=== PATIENT | male | born 1995 ===

== ENCOUNTER 2018-03-23 16:53 | Emergency (ER) | payer OTHER ==
[2018-03-23 17:03] VITALS: BP 150/89; PULSE 98; RESP 16; TEMP 98.4; O2SAT 98
[2018-03-23] MEDS ORDERED: IBUPROFEN 800 MG TAB PO ONE (17:15)
--- NOTE | 2018-03-23 17:18 | PD ---
HPI Chief Complaint: Injury Time Seen by Provider: 17:10 Travel History International Travel<30 days: No Contact w/Intl Traveler<30days: No Traveled to known affect area: No History of Present Illness HPI 22-year-old male presents to the emergency department for evaluation of bilateral arm pain injury that occurred around 330 this afternoon. Patient states he dropped a heavy toolbox on his arms. He states the right is worse than the left. He denies any other injury. He is not currently on any medications. He states he is allergic to penicillin. Current pain is 8/10, achy, throbbing, sharp. Exacerbating factor is movement. Alleviating factors keeping the arm still. Moderate severity. PFSH Social History Alcohol Use: Yes Tobacco Use: No Substance Use: No Allergies-Medications (Allergen,Severity, Reaction): Coded Allergies: Penicillins (Verified Allergy, Unknown, 03/23/18) Review of Systems Except as stated in HPI: all other systems reviewed are Neg Physical Exam Narrative GENERAL: Well-nourished, well-developed male patient. Afebrile. SKIN: Focused skin assessment warm/dry. HEAD: Normocephalic. Atraumatic EYES: No scleral icterus. No injection or drainage. NECK: Supple, trachea midline. No JVD or lymphadenopathy. CARDIOVASCULAR: Regular rate and rhythm without murmurs, gallops, or rubs. Bilateral radial pulses are 2+. RESPIRATORY: Breath sounds equal bilaterally. No accessory muscle use. Lung sounds are clear to auscultation. GASTROINTESTINAL: Abdomen soft, non-tender, nondistended. MUSCULOSKELETAL: No cyanosis, or edema. Patient has tenderness over bilateral forearms and right dorsal hand. BACK: Nontender without obvious deformity. No CVA tenderness. Data Data Last Documented VS Vital Signs Date Time Temp Pulse Resp B/P (MAP) Pulse Ox O2 Delivery O2 Flow Rate FiO2 03/23/18 17:03 98.4 98 16 150/89 (109) 98 Orders Orders Hand, Complete (Frk3tmd) (03/23/18 ) Hand, Complete ([id number]) (03/23/18 ) Forearm (2vws) (03/23/18 ) Forearm (2vws) (03/23/18 ) Ibuprofen (Motrin) (03/23/18 17:15) [facility] Medical Decision Making Medical Screen Exam Complete: Yes Emergency Medical Condition: Yes Medical Record Reviewed: Yes Interpretation(s) Last Impressions Hand X-Ray 03/23/18 0000 Signed Impressions: Service Date/Time: March 17:26 - CONCLUSION: No evidence of recent bony injury. Sundar Frye MD Hand X-Ray 03/23/18 0000 Signed Impressions: Service Date/Time: March 17:24 - CONCLUSION: No evidence of recent bony injury. Sundar Frye MD x-ray right forearm CONCLUSION: 1. No acute fracture or dislocation. x-ray left forearm - CONCLUSION: 1. No acute fracture or dislocation. Differential Diagnosis Fracture versus contusion versus dislocation Narrative Course 22-year-old male presents to the emergency department for evaluation of bilateral arm injury. X-ray of the right hand, left hand, right forearm, left forearm are altered and pending. Patient is given ibuprofen 800 mg p.o. X-ray of the right hand shows no evidence of bony injury. X-ray of the left hand shows no evidence of bony injury. X-ray of the right forearm shows no fracture or dislocation. X-ray of the left forearm shows no fracture or dislocation. Patient is given a Velcro wrist splint for the right arm. He will be discharged with a prescription for ibuprofen. He is instructed ice and follow- up with his Worker's Comp. physician. The patient was discharged in stable condition with instructions, including return instructions and follow up instructions. Diagnosis Primary Impression: Contusion of lower arm, left Qualified Codes: S50.12XA - Contusion of left forearm, initial encounter Additional Impression: Contusion of lower arm, right Qualified Codes: S50.11XA - Contusion of right forearm, initial encounter Referrals: Primary Care Physician call for appointment Patient Instructions: Contusion in Adults (ED), General Instructions Additional Instructions: Take ibuprofen as directed as needed with food for pain. Ice for 20 minutes 4-5 times daily. Follow-up with your Worker's Comp. physician. Return to the emergency department for any acute worsening of symptoms. Med/Other Pt SpecificInfo: Prescription(s) given Scripts Ibuprofen (Ibuprofen) 800 Mg Tab 800 MG PO TID Y for PAIN SCALE 1 TO 10, #21 TAB 0 Refills Prov: ZafarChastity HUERTA 03/23/18 Disposition: 01 DISCHARGE HOME Condition: Stable Chastity Stephen March 23, 2018 17:18
--- NOTE | 2018-03-23 17:38 | RADRPT ---
EXAM DATE/TIME: 03/23/2018 17:24 [facility] COMPARISON: No previous studies available for comparison. INDICATIONS : Right hand pain; tool box fell on hands today. MEDICAL HISTORY : None. SURGICAL HISTORY : None. ENCOUNTER: Initial ACUITY: 1 day PAIN SCORE: 7/10 LOCATION: Right hand. FINDINGS: Three view examination of the right hand demonstrates no soft tissue swelling, dislocation, or fractu re. The carpal bones appear intact. The interphalangeal and metacarpophalangeal joints are intact. Bony mineralization is normal. CONCLUSION: No evidence of recent bony injury. Sundar Frye MD on March 23, 2018 at 17:36 Board Certified Radiologist. This report was verified electronically.
--- NOTE | 2018-03-23 17:39 | RADRPT ---
EXAM DATE/TIME: 03/23/2018 17:26 [facility] COMPARISON: No previous studies available for comparison. INDICATIONS : Left hand pain; tool box fell on hands today. MEDICAL HISTORY : None. SURGICAL HISTORY : None. ENCOUNTER: Initial ACUITY: 1 day PAIN SCORE: 7/10 LOCATION: Left hand. FINDINGS: Three view examination of the left hand demonstrates no soft tissue swelling, dislocation, or fractur e. The carpal bones appear intact. The interphalangeal and metacarpophalangeal joints are intact. Bony mineralization is normal. CONCLUSION: No evidence of recent bony injury. Sundar Frye MD on March 23, 2018 at 17:36 Board Certified Radiologist. This report was verified electronically.
--- NOTE | 2018-03-23 17:40 | RADRPT ---
EXAM DATE/TIME: 03/23/2018 17:29 [facility] COMPARISON: No previous studies available for comparison. INDICATIONS : Right forearm pain; tool box fell on arms today. MEDICAL HISTORY : None. SURGICAL HISTORY : None. ENCOUNTER: Initial ACUITY: 1 day PAIN SCORE: 7/10 LOCATION: Right forearm. FINDINGS: Two view examination of the right forearm demonstrates no evidence of fracture or dislocation. Bony mineralization is normal. The soft tissue structures are intact. CONCLUSION: 1. No acute fracture or dislocation. Man Marks MD on March 23, 2018 at 17:38 Board Certified Radiologist. This report was verified electronically.
--- NOTE | 2018-03-23 17:41 | RADRPT ---
EXAM DATE/TIME: 03/23/2018 17:33 [facility] COMPARISON: No previous studies available for comparison. INDICATIONS : Left forearm pain; tool box fell on arms today. MEDICAL HISTORY : None. SURGICAL HISTORY : None. ENCOUNTER: Initial ACUITY: 1 day PAIN SCORE: 7/10 LOCATION: Left forearm. FINDINGS: Two view examination of the left forearm demonstrates no evidence of fracture or dislocation. Bony m ineralization is normal. The soft tissue structures are intact. CONCLUSION: 1. No acute fracture or dislocation. Man Marks MD on March 23, 2018 at 17:38 Board Certified Radiologist. This report was verified electronically.
[2018-03-23] MEDS ORDERED: IBUP1TAB7 PO (17:48)
== END 2018-03-23 18:00 | disposition home or self-care (01) ==
LOC: NEPK 16:53
DX: S50.11XA Contusion of right forearm, initial encounter (principal); S50.12XA Contusion of left forearm, initial encounter; W20.8XXA Other cause of strike by thrown, projected or falling object, initial encounter
CPT/HCPCS: 73090; 73130; 99283; L3908